=== PATIENT | female | born 1980 | race Caucasian/White ===

== ENCOUNTER → 2021-09-25 | Outpatient (CLI) | payer OTHER ==
--- NOTE | 2021-09-25 17:02 | KCIC ---
US THYROID History: Reason: ENLARGED THYROID, SUBCLINICAL HYPOTHYROIDISM / Spl. Instructions: / History: Comparison: None. Technique: Multiple grayscale and color Doppler images of the thyroid gland were obtained. Findings: Right thyroid lobe: 4.1 x 2.2 x 1.7 cm. Heterogeneous echotexture. Left thyroid lobe: 4.9 x 1.7 x 1.7 cm. Heterogeneous echotexture. Isthmus: 0.4 cm. No discrete nodule identified. ACR Thyroid Imaging, Reporting And Data System (TI-RADS): White Paper Of The ACR TI-RADS Committee. J ournal of the [employer], volume 14, issue 5, pages 587-595 (October 2016). IMPRESSION: 1. Enlarged heterogeneous thyroid, may indicate nonspecific thyroiditis. Recommend correlation with thyroid lab values. Electronically signed by: Edwin Cornell DO (09/25/2021 4:59 PM) [id number]
== END ==
LOC: KCIC US 15:32
PROVIDERS: ATTEND Nurse Practitioner Family
DX: E04.9 Nontoxic goiter, unspecified (principal); E03.8 Other specified hypothyroidism
CPT/HCPCS: 76536